=== PATIENT | female | born 1990 | race American Indian/Alaskan Native ===

== ENCOUNTER 2018-01-28 10:49 | Emergency (ER) | payer BC ==
[2018-01-28 10:55] VITALS: RESP 16; TEMP 97.9
[2018-01-28 10:56] VITALS: BMI 21.9
[2018-01-28] MEDS ORDERED: Sodium Chloride 0.9% 1,000 ML IV STA (11:13)
--- NOTE | 2018-01-28 11:15 | ED PDOC ---
HPI: Abdomen Time Seen by Provider: 01/28/18 11:04 Chief Complaint (Nursing): Abdominal Pain History Per: Patient Onset/Duration Of Symptoms: Days (1) Current Symptoms Are (Timing): Still Present Severity: Moderate Pain Scale Rating Of: 4 Location Of Pain/Discomfort: RLQ Quality Of Discomfort: Unable To Describe Associated Symptoms: Nausea, Diarrhea. denies: Fever, Vomiting Exacerbating Factors: None Alleviating Factors: None Additional Complaint(s): RLQ abd pain assoc with nausea since this AM. Denies dysuria. LMP finished yesterday. Abnormal Vaginal Bleeding: No Past Medical History Vital Signs: Last Vital Signs Temp 97.9 F 01/28/18 10:55 Pulse 76 01/28/18 10:55 Resp 16 01/28/18 10:55 BP 130/82 01/28/18 10:55 Pulse Ox 100 01/28/18 11:15 - Medical History PMH: Asthma - Family History Family History: States: Unknown Family Hx - Home Medications Home Medications: Ambulatory Orders Medication Instructions Recorded Naproxen [Naprosyn] 500 mg PO Q12H #20 tab 01/28/18 - Allergies Allergies/Adverse Reactions: Allergies Allergy/AdvReac Type Severity Reaction Status Date / Time No Known Allergies Allergy Verified 01/28/18 11:03 Review of Systems ROS Statement: Except As Marked, All Systems Reviewed And Found Negative Gastrointestinal: Positive for: Nausea, Abdominal Pain Genitourinary Female: Negative for: Dysuria, Frequency, Vaginal Bleeding Physical Exam - Reviewed Nursing Documentation Reviewed: Yes Vital Signs Reviewed: Yes - Physical Exam Appears: Positive for: Non-toxic, No Acute Distress Head Exam: Positive for: ATRAUMATIC, NORMAL INSPECTION, NORMOCEPHALIC Skin: Positive for: Normal Color, Warm, DRY Eye Exam: Positive for: EOMI, Normal appearance, PERRL ENT: Positive for: Normal ENT Inspection Neck: Positive for: Normal, Painless ROM Cardiovascular/Chest: Positive for: Regular Rate, Rhythm Respiratory: Positive for: CNT, Normal Breath Sounds Gastrointestinal/Abdominal: Positive for: Soft, Tenderness (RLQ), Guarding. Negative for: Rebound Pelvic Exam: Positive for: External Exam Normal, No Cerv. Motion Tender, No Masses. Negative for: Active Bleeding, Discharge, Tender W/Cervical Motion, Tender Adnexa, Tender Uterus Back: Positive for: Normal Inspection Extremity: Positive for: Normal ROM Neurologic/Psych: Positive for: Alert, Oriented - Laboratory Results Result Diagrams: 01/28/18 11:35 01/28/18 11:35 - ECG O2 Sat by Pulse Oximetry: 100 - Progress Re-evaluation Time: 14:31 Condition: Improved (No abd tenderness, no vomiting) Disposition - Clinical Impression Clinical Impression: Abdominal pain in female - Patient ED Disposition Is Patient to be Admitted: No - Disposition Referrals: FAMILY PROVIDER,NO [Primary Care Provider] - [facility] [Outside] Disposition: Routine/Home Disposition Time: 14:32 Condition: FAIR Prescriptions: Naproxen [Naprosyn] 500 mg PO Q12H #20 tab Instructions: Colic Forms: [employer] (Estonian)
[2018-01-28 12:10] LABS: EOS % 1.2 % (0.0-4.0); HEMOGLOBIN 13.9 g/dL (12.0-16.0); LYMPH # 0.6 K/uL (1.0-4.3); LYMPH % 18.6 % (20.0-40.0); MEAN CELL VOLUME 89.3 fl (81.0-99.0); MEAN CORPUSCULAR HEMOGLOBIN 30.9 pg (27.0-31.0); MEAN CORPUSCULAR HGB CONC 34.6 g/dL (33.0-37.0); MEAN PLATELET VOLUME 9.7 fl (7.2-11.7); MONO # 0.3 K/uL (0.0-0.8); MONO % 8.2 % (0.0-10.0); NEUT # 2.4 K/uL (1.8-7.0); NRBC % 0.1 % (0.0-0.0); RBC 4.51 Mil/uL (3.80-5.20); RED CELL DISTRIBUTION WIDTH 13.6 % (11.5-14.5); WHITE BLOOD COUNT 3.4 K/uL (4.8-10.8)
[2018-01-28 12:38] LABS: ALB/GLOB RATIO 1.4 (1.0-2.1); ALBUMIN 4.6 g/dL (3.5-5.0); ALT/SGPT 33 U/L (9-52); AST/SGOT 31 U/L (14-36); BLOOD UREA NITROGEN 13 mg/dl (7-17); CALCIUM 9.5 mg/dL (8.4-10.2); GFR AFRICAN-AMERICAN > 60; GFR NON-AFRICAN AMERICAN > 60
[2018-01-28] MEDS ORDERED: Iohexol 300 100 ML IJ ONE (13:36)
[2018-01-28] MEDS ORDERED: Sodium Chloride 0.9% 50 ML IV ONE (13:36)
--- NOTE | 2018-01-28 14:15 | CT ---
PROCEDURE: CT Abdomen and Pelvis with contrast HISTORY: RLQ pain COMPARISON: None. TECHNIQUE: Contrast dose: 98 mL Omnipaque 300 Radiation dose: Total exam DLP = 390.3 mGy-cm. This CT exam was performed using one or more of the following dose reduction techniques: Automated exposure control, adjustment of the mA and/or kV according to patient size, and/or use of iterative reconstruction technique. FINDINGS: LOWER THORAX: Unremarkable. LIVER: Hepatic steatosis. No gross lesion or ductal dilatation. GALLBLADDER AND BILE DUCTS: Unremarkable. PANCREAS: Unremarkable. No gross lesion or ductal dilatation. SPLEEN: Unremarkable. ADRENALS: Unremarkable. No mass. KIDNEYS AND URETERS: Unremarkable. No hydronephrosis. No solid mass. VASCULATURE: Unremarkable. No aortic aneurysm. BOWEL: Unremarkable. No obstruction. No gross mural thickening. APPENDIX: Normal appendix. PERITONEUM: Unremarkable. No free fluid. No free air. LYMPH NODES: Unremarkable. No enlarged lymph nodes. BLADDER: Unremarkable. REPRODUCTIVE: Intrauterine device in place. BONES: No acute fracture. OTHER FINDINGS: None. IMPRESSION: No acute abdominal pelvic pathology.
[2018-01-28 16:27] VITALS: BP 126/78; PULSE 72; O2SAT 99
== END 2018-01-28 14:50 | disposition home or self-care (01) ==
LOC: H.ER 10:49
DX: R10.2 Pelvic and perineal pain (principal); J45.909 Unspecified asthma, uncomplicated
CPT/HCPCS: 74177; 80053; 81025; 85025; 96374; 96375; 99283; J1885; J2405; J7030; Q9967

== ENCOUNTER 2018-08-13 18:23 | Emergency (ER) | payer BC ==
[2018-08-13 18:23] VITALS: BMI 21.9
[2018-08-13 18:49] VITALS: BP 147/80; PULSE 90; RESP 18; TEMP 98.2; O2SAT 98
--- NOTE | 2018-08-13 19:08 | ED PDOC ---
HPI: Female Pain Time Seen by Provider: 08/13/18 18:55 Chief Complaint (Nursing): Female Genitourinary Chief Complaint (Provider): Dysuria History Per: Patient History/Exam Limitations: no limitations Onset/Duration Of Symptoms: Days (today) Additional Complaint(s): Pt. with dysuria. No abd pain, back pain, nausea, vomit, diarrhea. No weakness. No vaginal bleeding. No pelvic pain. Past Medical History Reviewed: Nursing Documentation, Vital Signs Vital Signs: Last Vital Signs Temp 98.2 F 08/13/18 18:46 Pulse 90 08/13/18 18:46 Resp 18 08/13/18 18:46 BP 147/80 08/13/18 18:46 Pulse Ox 98 08/13/18 18:46 - Medical History PMH: Asthma - Surgical History Surgical History: No Surg Hx - Family History Family History: States: Unknown Family Hx - Home Medications Home Medications: Ambulatory Orders Medication Instructions Recorded Naproxen [Naprosyn] 500 mg PO Q12H #20 tab 01/28/18 Ibuprofen [Motrin] 600 mg PO TID 7 Days tab 08/13/18 Nitrofurantoin Macrocrystals 100 mg PO BID #10 cap 08/13/18 [Macrobid] Phenazopyridine HCl [Pyridium] 100 mg PO BID PRN 5 Days tab 08/13/18 - Allergies Allergies/Adverse Reactions: Allergies Allergy/AdvReac Type Severity Reaction Status Date / Time No Known Allergies Allergy Verified 08/13/18 18:49 Review of Systems ROS Statement: Except As Marked, All Systems Reviewed And Found Negative Genitourinary Female: Positive for: Dysuria, Frequency Physical Exam - Reviewed Nursing Documentation Reviewed: Yes Vital Signs Reviewed: Yes - Physical Exam Appears: Positive for: Non-toxic, No Acute Distress Head Exam: Positive for: ATRAUMATIC, NORMAL INSPECTION, NORMOCEPHALIC Skin: Positive for: Normal Color, Warm, DRY Eye Exam: Positive for: EOMI, Normal appearance, PERRL ENT: Positive for: Normal ENT Inspection Neck: Positive for: Normal, Painless ROM Cardiovascular/Chest: Positive for: Regular Rate, Rhythm Respiratory: Positive for: CNT, Normal Breath Sounds Gastrointestinal/Abdominal: Positive for: Normal Exam, Soft. Negative for: Tenderness Pelvic Exam: Positive for: External Exam Normal, Other (examined) Back: Positive for: Normal Inspection. Negative for: L CVA Tenderness, R CVA Tenderness Extremity: Positive for: Normal ROM Neurologic/Psych: Positive for: Alert, Oriented - Laboratory Results Urine dip results: Positive for: Leukocyte Esterase - ECG O2 Sat by Pulse Oximetry: 98 Pulse Ox Interpretation: Normal - Progress ED Course And Treament: 1933: Stable. AAOx3. Pain free. Tolerated PO. Fu with pcp. Has uti. Disposition - Clinical Impression Clinical Impression: Urinary tract infection - Patient ED Disposition Is Patient to be Admitted: No Counseled Patient/Family Regarding: Studies Performed, Diagnosis, Need For Followup, Rx Given - Disposition Referrals: [facility] [Outside] - 08/14/18 Disposition: Routine/Home Disposition Time: 19:23 Condition: STABLE Additional Instructions: Return if not better in 3 days. Prescriptions: Ibuprofen [Motrin] 600 mg PO TID 7 Days tab Nitrofurantoin Macrocrystals [Macrobid] 100 mg PO BID #10 cap Phenazopyridine HCl [Pyridium] 100 mg PO BID PRN 5 Days tab PRN Reason: Bladder Spasm Instructions: Urinary Tract Infection, Adult (DC) Forms: [employer] (Burmese), [facility] ED School/Work Excuse
== END 2018-08-13 19:45 | disposition home or self-care (01) ==
LOC: H.ER 18:23
DX: N39.0 Urinary tract infection, site not specified (principal)